=== PATIENT | female | born 1995 | race Hispanic/Latino ===

== ENCOUNTER 2024-03-24 23:28 | Emergency (ER) | payer SELFPAY ==
[~2024-03-24] VITALS: Ht 154.9 cm; Wt 59.4 kg
[2024-03-25 00:04] VITALS: BP 149/70; PULSE 101; RESP 22; TEMP 99; O2SAT 100
--- NOTE | 2024-03-25 00:05 | ERN ---
ED Note History of Present Illness Stated Complaint: C/O LOWER BACK PAIN Chief Complaint: Back Pain-No Injury Time Seen by MD: 23:33 Time Seen by Midlevel: 23:33 Dictation: 28-year-old female presents to the emergency department due to reported having low back pain that started 4 days ago after she was attempting to carry some sodas. Patient states she has felt a sharp pain to the lower back that is persistent. She states that she was seen at a local emergency department and was treated with ibuprofen. However, she felt that that could have been more complication so she went to [facility] and was advised to have a CT scan of the lower back. In further conversation, the patient provides information to clarify that there is no loss of bowel or bladder and denies any sacral sparing. Patient denies having any fever, chills, vertebral pain or flank pain. Allergies: Coded Allergies: No Known Drug Allergies (Unverified Allergy, Unknown, 02/27/22) Home Meds No Active Prescriptions or Reported Meds Past Medical History Past Medical History: No Pertinent History Surgical History: Cholecystectomy Family History: Negative Social History: Negative, Lives with family LMP: Feb 23, 2024 : 2 Para: 2 Aborts: 0 RN Note Reviewed/Agreed w/PFSH: Yes Review of System Dictation MS/Extremity: Low back pain Initial Vital Sign VS Vital Signs Date Time Temp Pulse Resp B/P (MAP) Pulse Ox O2 Delivery O2 Flow Rate FiO2 03/24/24 23:31 98.4 83 20 118/73 100 Room Air Physical Exam Dictation General: awake, alert, NAD Head/Face: Normocephalic, atraumatic Eyes: PERRL, EOMI ENT: Oral mucosa moist Neck: Trachea midline, supple Cardiovascular: RRR, no edema Respiratory: Symmetrical, non-labored Abdomen: Soft, non-tender, non-distended, no guarding. Skin: Warm, dry, good turgor, no rash MS/Extremity: Pulses equal, no cyanosis, neurovascular intact, FROM Back: No vertebral tenderness, paraspinal spasm to the lumbar area Neuro: COAx4, GCS 15, steady gait, Psych: Normal behavior, mood, and affect normal ED Course ED Course Orders Procedure Category Date Status Time ,Urine Test LAB 03/24/24 Logged 23:42 Vital Signs Date Time Temp Pulse Resp B/P (MAP) Pulse Ox O2 Delivery O2 Flow Rate FiO2 03/24/24 23:31 98.4 83 20 118/73 100 Room Air Medical Decision Making MDM MDM: Differential diagnosis: Lumbar back sprain, acute low back pain. Rationale: Tests considered and ordered secondary to shared decision making include: Previous outside records reviewed: Old ER visits. Risk of complication and/or morbidity or mortality of patient management: None Medications-Per medication reconciliation Need for hospitalization: Patient does not meet criteria for hospitalization. Need for emergency major/minor surgery: No There are no social concerns with this patient. Prescription drug management Prescriptions will include symptomatic care An in-depth discussion along with educational material was provided to the patient in regards to management of a low back injury for which she was advised that diagnostic studies are not warranted at this point due to the mechanism of injury for which she understood and agreed to continue with the prescribed ibuprofen that was prescribed earlier. Patient's prior external medical records from other ER visits were reviewed by me as indicated. Prior testing and results from previous visits were reviewed. Prior tests were taken into account with medical decision making and resource utilization, independent historian/historians were used to obtain complete medical history. I independently interpreted the test that were performed, results were reviewed by me and considered findings on radiology if ordered. Medical management and examination interpretation discussions were had by me with other qualified healthcare professionals as indicated for the patient's care. DX & DISP Disposition: Discharge Departure Impression: Primary Impression: Lumbar back sprain Condition: Stable Scripts No Active Prescriptions or Reported Meds Referrals: JOANNA ANDRADE MD (PCP) I have reviewed the case, and I agree with, Diagnosis and Plan LORNA JUNIOR Mar 25, 2024 00:05
== END 2024-03-25 00:23 | disposition home or self-care (01) ==
LOC: EDH 23:28
DX: S33.5XXA Sprain of ligaments of lumbar spine, initial encounter (principal); Z90.49 Acquired absence of other specified parts of digestive tract; X58.XXXA Exposure to other specified factors, initial encounter; Y93.89 Activity, other specified; Y92.89 Other specified places as the place of occurrence of the external cause; Y99.8 Other external cause status
CPT/HCPCS: 81025